=== PATIENT | female | born 1970 | race Caucasian/White ===

== ENCOUNTER → 2016-12-05 | Outpatient (CLI) | payer OTHER ==
--- NOTE | 2016-12-05 10:45 | RAD ---
Indication injury to the foot fall. AP oblique and lateral views of the left foot were obtained. There are some slight soft tissue swelling laterally in the foot at the metatarsal phalangeal joint of the fifth digit. No acute bony finding is apparent
--- NOTE | 2016-12-05 10:47 | RAD ---
Indication injury, pain. AP oblique and lateral views of the right knee were obtained. No bony abnormality is seen
== END | disposition home or self-care (01) ==
LOC: DXRADRC 10:24
PROVIDERS: ATTEND Nurse Practitioner Family
DX: S89.91XA Unspecified injury of right lower leg, initial encounter (principal); S99.922A Unspecified injury of left foot, initial encounter; X58.XXXA Exposure to other specified factors, initial encounter; Y93.89 Activity, other specified; Y92.89 Other specified places as the place of occurrence of the external cause; Y99.8 Other external cause status
CPT/HCPCS: 73562; 73630